=== PATIENT | female | born 1965 | race Caucasian/White ===

== ENCOUNTER 2019-06-29 04:49 | Inpatient (IN) | payer SELFPAY ==
[~2019-06-29] VITALS: Ht 170.2 cm; Wt 76.0 kg
[2019-06-29] MEDS ORDERED: IV NORMAL SALINE 1000ML BAG 1,000 ML IV SCH (05:45)
--- NOTE | 2019-06-29 05:58 | PHYS DOC ---
Adult General Chief Complaint Chief Complaint: BLOODY STOOL HPI HPI Patient is a 53 year old female with history of hypertension and tachycardia who presents with complaining of rectal bleeding. Patient states she had more than 20 episodes of rectal bleeding since 2100 last night as bright red blood t hat changing to blood clot with the last few episodes of rectal bleeding. Patient states she is passing 150 cc blood with each episode of rectal bleeding and denies abdominal pain, dizziness, palpitation, chest pain, shortness of breath, rectal pain, nausea and vomiting, history of GI bleeding. Patient states she takes baby aspirin daily and denies using [id number] pain me dication recently. 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 Patient denies fever and chills, URI symptoms, myalgia. Review of Systems Review of Systems Constitutional: Denies fever or chills [] Eyes: Denies change in visual acuity, redness, or eye pain [] HENT: Denies nasal congestion or sore throat [] Respiratory: Denies cough or shortness of breath [] Cardiovascular: No additional information not addressed in HPI [] GI: Denies abdominal pain, nausea, vomiting,, report bloody stools[] : Denies dysuria or hematuria [] Musculoskeletal: Denies back pain or joint pain [] Integument: Denies rash or skin lesions [] Neurologic: Denies headache, focal weakness or sensory changes [] Endocrine: Denies polyuria or polydipsia [] All other systems were reviewed and found to be within normal limits, except as documented in this note. Current Medications Current Medications Current Medications Medications (Trade) Dose Ordered Sig/Román Start Time Stop Time Status Last Admin Dose Admin Pantoprazole Sodium (PROTONIX VIAL for IV PUSH) 40 mg 1X ONCE 06/29/19 06:00 06/29/19 06:01 DC Sodium Chloride 1,000 ml @ 1,000 mls/hr Q1H 06/29/19 05:45 06/29/19 06:44 Allergies Allergies Allergies Coded Allergies Type Severity Reaction Last Updated Verified acetaminophen Allergy Unknown 06/29/19 Yes oxycodone Allergy Unknown 06/29/19 Yes Physical Exam Physical Exam Constitutional: Well developed, well nourished, mild distress, non-toxic appearance, no pallor. [] HENT: Normocephalic, atraumatic, moist oral mucosa. Eyes: PERRLA, EOMI, conjunctiva normal, no discharge. [] Neck: Normal range of motion, no tenderness, supple, no stridor. [] Cardiovascular:Heart rate regular rhythm, no murmur [] Lungs & Thorax: Bilateral breath sounds clear to auscultation [] Abdomen: Bowel sounds normal, soft, no tenderness, no masses, no pulsatile masses. Rectal exam in present of design intern showed gross maroon color blood inside of rectum without palpable mass or external hemorrhoid. Skin: Warm, dry, no erythema, no rash. [] Back: No tenderness, no CVA tenderness. [] Extremities: No tenderness, no cyanosis, no clubbing, ROM intact, no edema. [] Neurologic: Alert and oriented X 3, no focal deficits noted. [] Psychologic: Affect anxious, judgement normal, mood normal. [] Current Patient Data Vital Signs Vital Signs Date Time Temp Pulse Resp B/P (MAP) Pulse Ox O2 Delivery O2 Flow Rate FiO2 06/29/19 05:09 97.7 78 20 142/81 (101) 100 Room Air 97.7 EKG EKG [] Radiology/Procedures Radiology/Procedures [] Course & Med Decision Making Course & Med Decision Making Pertinent Labs and Imaging studies are pending. Evaluation of patient in ER showed 53-year-old female patient presented with complaining of more than 20 episodes of rectal bleeding since last night without other symptoms. Patient called her primary care physician Dr. Ruiz who recommended to come to emergency room for evaluation. Sign out given to at 0600 for further evaluation and final disposition. Discussed current findings and plan with patient and family, who acknowledge understanding and agreement. Dragon Disclaimer Dragon Disclaimer This electronic medical record was generated, in whole or in part, using a voice recognition dictation system. Departure Departure Impression: Primary Impression: Rectal bleeding THOMAS WEST MD Jun 29, 2019 05:58
[2019-06-29] MEDS ORDERED: PANTOPRAZOLE IV PUSH 40 MG VIAL. IVP ONE (06:00)
[2019-06-29 06:28] LABS: CALCIUM 8.5 mg/dL (8.5-10.1); CREATININE 0.6 mg/dL (0.6-1.0); GFR 104.2; POTASSIUM 3.7 mmol/L (3.5-5.1)
[2019-06-29 06:30] LABS: BASO % 1 % (0-3); EOS # 0.4 x10^3/uL (0.0-0.7); EOS % 5 % (0-3); HEMATOCRIT 34.6 % (36.0-47.0); HEMOGLOBIN 11.9 g/dL (12.0-15.5); LYMPH # 3.3 x10^3/uL (1.0-4.8); LYMPH % 40 % (24-48); MEAN CORPUSCULAR HEMOGLOBIN 34 pg (25-35); MEAN CORPUSCULAR HGB CONC 34 g/dL (31-37); MEAN CORPUSCULAR VOLUME 99 fL (79-100); MONO # 0.9 x10^3/uL (0.0-1.1); MONO % 11 % (0-9); NEUT # 3.6 x10^3/uL (1.8-7.7); NEUT % 44 % (31-73); PLATELET COUNT 223 x10^3/uL (140-400); RED BLOOD COUNT 3.48 x10^6/uL (3.50-5.40); RED CELL DISTRIBUTION WIDTH 13.6 % (11.5-14.5); WHITE BLOOD COUNT 8.2 x10^3/uL (4.0-11.0)
[2019-06-29 06:34] LABS: ALBUMIN 3.5 g/dL (3.4-5.0); TOTAL BILIRUBIN 0.5 mg/dL (0.2-1.0)
--- NOTE | 2019-06-29 06:42 | RAD ---
INDICATION: Abdomen pain COMPARISON: None. TECHNIQUE: Axial CT images obtained through the abdomen and pelvis without contrast. One or more of the following individualized dose reduction techniques were utilized for this examination: 1. Automated exposure control; 2. Adjustment of the mA and/or kV according to patient size; 3. Use of iterative reconstruction technique. FINDINGS: Calcific atherosclerosis without abdominal aortic aneurysm. No intrahepatic bile duct dilation. No peripancreatic fluid collection. Spleen unremarkable. Urinary bladder is decompressed. Prominence bilateral extrarenal pelvis. Calcifications within the pelvis. Colonic diverticulosis. There is some questionable mild haziness to the fat adjacent to the sigmoid colon. No periappendiceal inflammatory changes. Degenerative changes the spine with multilevel central canal and neural foraminal stenosis with mild scoliosis. Inferior endplate compression fracture L1 vertebral body IMPRESSION: * Colonic diverticulosis with possible mild haziness the fat adjacent to the sigmoid colon. This is a mild finding but early diverticulitis could have this appearance in the correct clinical context. * Severe calcific atherosclerosis. * Degenerative changes of the spine with scoliotic curvature multilevel central canal neural foraminal stenosis as well as inferior endplate compression fracture of L1. Electronically signed by: Easton Tinsley MD (06/29/2019 6:39 AM) [id number]
[2019-06-29] MEDS ORDERED: MORPHINE SULFATE 2 MG/ML VIAL. IV PRN ×2 (07:00→07:45)
[2019-06-29] MEDS ORDERED: ONDANSETRON PF 4 MG/2 ML VIAL. IV PRN (07:00)
[2019-06-29 07:06] LABS: PROTHROMBIN TIME PATIENT 12.6 SEC (11.7-14.0)
[2019-06-29 08:00] VITALS: BP 97/52
[2019-06-29 11:00] VITALS: BP 107/58
--- NOTE | 2019-06-29 12:00 | PDOC ---
Provider Note Provider Note [id number] ANA GUSTAFSON MD Jun 29, 2019 12:00
--- NOTE | 2019-06-29 12:25 | HP ---
ADMIT DATE: 06/29/2019 CHIEF COMPLAINT: Bright red rectal bleeding. HISTORY OF PRESENT ILLNESS: A 53-year-old white female, patient of Dr. Villalba who takes carvedilol for hypertension, omeprazole and low-dose aspirin as her only medications. She had painless multiple episodes of bright red rectal bleeding over the last several hours prior to coming to the ER. Rectal exam was unremarkable except for blood and she was admitted with hemoglobin stable and vital signs stable so far. There has been no heartburn, abdominal pain, nausea, fever, melena, or any other symptoms prior to the onset of the hematochezia. PAST MEDICAL HISTORY: No serious medical problems. History of hypertension, but no heart disease. ALLERGIES: OXYCODONE AND TYLENOL LISTED. MEDICATIONS: She takes aspirin 81 mg every day. SOCIAL HISTORY: Half pack a day smoker, marital status unknown. 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 Nondrinker. FAMILY HISTORY: Unremarkable. REVIEW OF SYSTEMS: No other complaints. OBJECTIVE: ENT: Unremarkable. No pallor. NECK: No masses, nodes or bruits. LUNGS: Clear. CARDIOVASCULAR: Regular rate. No murmur is heard. BREASTS: Not examined. ABDOMEN: Soft, benign and nontender. EXTREMITIES: Good pedal and radial pulses. No joint or skin lesions or tachycardia. NEUROLOGIC: Physiologic. GENITOURINARY AND RECTAL: Deferred. ASSESSMENT: Recurrent episodes of hematochezia. Most likely cause would be diverticular bleed as this is painless, spontaneous and probably exacerbated by aspirin. She has never had a colonoscopy. PLAN: IV fluids. Hemoglobin monitoring, discontinue aspirin. GI consultation pending if her bleeding stops, she would need a colonoscopy in the near future or will need to be that more urgently if it persists. ANA GUSTAFSON MD DR: [email or web address]/[email or web address] JOB#: [id number] / [id number]
[2019-06-29] MEDS: PANTOPRAZOLE 40 MG TABLET.DR. PO SCH (12:30)
--- NOTE | 2019-06-29 12:54 | PDOC ---
G I PROGRESS NOTE Reason for Follow-up Rectal bleed Subjective Hungry Physical Exam Lungs clear CV S1 S2 ABd +BS, soft, nontender Review of Relevant I have reviewed the following items shantell (where applicable) has been applied. Labs Laboratory Tests Test 06/29/19 06:00 White Blood Count 8.2 x10^3/uL (4.0-11.0) Red Blood Count 3.48 x10^6/uL (3.50-5.40) Hemoglobin 11.9 g/dL (12.0-15.5) Hematocrit 34.6 % (36.0-47.0) Mean Corpuscular Volume 99 fL (79-100) Mean Corpuscular Hemoglobin 34 pg (25-35) Mean Corpuscular Hemoglobin Concent 34 g/dL (31-37) Red Cell Distribution Width 13.6 % (11.5-14.5) Platelet Count 223 x10^3/uL (140-400) Neutrophils (%) (Auto) 44 % (31-73) Lymphocytes (%) (Auto) 40 % (24-48) Monocytes (%) (Auto) 11 % (0-9) Eosinophils (%) (Auto) 5 % (0-3) Basophils (%) (Auto) 1 % (0-3) Neutrophils # (Auto) 3.6 x10^3/uL (1.8-7.7) Lymphocytes # (Auto) 3.3 x10^3/uL (1.0-4.8) Monocytes # (Auto) 0.9 x10^3/uL (0.0-1.1) Eosinophils # (Auto) 0.4 x10^3/uL (0.0-0.7) Basophils # (Auto) 0.0 x10^3/uL (0.0-0.2) Prothrombin Time 12.6 SEC (11.7-14.0) Prothromb Time International Ratio 1.0 (0.8-1.1) Activated Partial Thromboplast Time 30 SEC (24-38) Sodium Level 130 mmol/L (136-145) Potassium Level 3.7 mmol/L (3.5-5.1) Chloride Level 96 mmol/L (98-107) Carbon Dioxide Level 24 mmol/L (21-32) Anion Gap 10 (6-14) Blood Urea Nitrogen 12 mg/dL (7-20) Creatinine 0.6 mg/dL (0.6-1.0) Estimated GFR (Cockcroft-Gault) 104.2 BUN/Creatinine Ratio 20 (6-20) Glucose Level 83 mg/dL (70-99) Calcium Level 8.5 mg/dL (8.5-10.1) Total Bilirubin 0.5 mg/dL (0.2-1.0) Aspartate Amino Transf (AST/SGOT) 23 U/L (15-37) Alanine Aminotransferase (ALT/SGPT) 28 U/L (14-59) Alkaline Phosphatase 94 U/L (46-116) Total Protein 7.0 g/dL (6.4-8.2) Albumin 3.5 g/dL (3.4-5.0) Albumin/Globulin Ratio 1.0 (1.0-1.7) Lipase 781 U/L (73-393) Laboratory Tests Test 06/29/19 06:00 White Blood Count 8.2 x10^3/uL (4.0-11.0) Red Blood Count 3.48 x10^6/uL (3.50-5.40) Hemoglobin 11.9 g/dL (12.0-15.5) Hematocrit 34.6 % (36.0-47.0) Mean Corpuscular Volume 99 fL (79-100) Mean Corpuscular Hemoglobin 34 pg (25-35) Mean Corpuscular Hemoglobin Concent 34 g/dL (31-37) Red Cell Distribution Width 13.6 % (11.5-14.5) Platelet Count 223 x10^3/uL (140-400) Neutrophils (%) (Auto) 44 % (31-73) Lymphocytes (%) (Auto) 40 % (24-48) Monocytes (%) (Auto) 11 % (0-9) Eosinophils (%) (Auto) 5 % (0-3) Basophils (%) (Auto) 1 % (0-3) Neutrophils # (Auto) 3.6 x10^3/uL (1.8-7.7) Lymphocytes # (Auto) 3.3 x10^3/uL (1.0-4.8) Monocytes # (Auto) 0.9 x10^3/uL (0.0-1.1) Eosinophils # (Auto) 0.4 x10^3/uL (0.0-0.7) Basophils # (Auto) 0.0 x10^3/uL (0.0-0.2) Prothrombin Time 12.6 SEC (11.7-14.0) Prothromb Time International Ratio 1.0 (0.8-1.1) Activated Partial Thromboplast Time 30 SEC (24-38) Sodium Level 130 mmol/L (136-145) Potassium Level 3.7 mmol/L (3.5-5.1) Chloride Level 96 mmol/L (98-107) Carbon Dioxide Level 24 mmol/L (21-32) Anion Gap 10 (6-14) Blood Urea Nitrogen 12 mg/dL (7-20) Creatinine 0.6 mg/dL (0.6-1.0) Estimated GFR (Cockcroft-Gault) 104.2 BUN/Creatinine Ratio 20 (6-20) Glucose Level 83 mg/dL (70-99) Calcium Level 8.5 mg/dL (8.5-10.1) Total Bilirubin 0.5 mg/dL (0.2-1.0) Aspartate Amino Transf (AST/SGOT) 23 U/L (15-37) Alanine Aminotransferase (ALT/SGPT) 28 U/L (14-59) Alkaline Phosphatase 94 U/L (46-116) Total Protein 7.0 g/dL (6.4-8.2) Albumin 3.5 g/dL (3.4-5.0) Albumin/Globulin Ratio 1.0 (1.0-1.7) Lipase 781 U/L (73-393) Medications Current Medications Sodium Chloride 1,000 ml @ 1,000 mls/hr Q1H IV Last administered on 06/29/19at 06:09; Start 06/29/19 at 05:45; Stop 06/29/19 at 06:44; Status DC Pantoprazole Sodium (PROTONIX VIAL for IV PUSH) 40 mg 1X ONCE IVP Last administered on 06/29/19at 06:09; Start 06/29/19 at 06:00; Stop 06/29/19 at 11:57; Status DC Levofloxacin/ Dextrose 100 ml @ 100 mls/hr 1X ONCE IV ; Start 06/29/19 at 07:00; Stop 06/29/19 at 11:57; Status DC Metronidazole 100 ml @ 100 mls/hr 1X ONCE IV ; Start 06/29/19 at 07:00; Stop 06/29/19 at 11:57; Status DC Ondansetron HCl (Zofran) 4 mg PRN Q8HRS PRN IV NAUSEA/VOMITING; Start 06/29/19 at 07:00; Stop 06/30/19 at 06:59 Morphine Sulfate (Morphine Sulfate) 2 mg PRN Q2HR PRN IV PAIN; Start 06/29/19 at 07:00; Stop 06/29/19 at 07:33; Status DC Morphine Sulfate (Morphine Sulfate) 2 mg PRN Q2HR PRN IV PAIN; Start 06/29/19 at 07:45; Stop 06/29/19 at 11:57; Status DC Dextrose/Sodium Chloride 1,000 ml @ 75 mls/hr [id number] IV ; Start 06/29/19 at 12:00 Pantoprazole Sodium (Protonix) 40 mg DAILYAC PO ; Start 06/29/19 at 12:30 Vitals/I & O Vital Sign - Last 24 Hours 06/29/19 06/29/19 06/29/19 06/29/19 05:09 05:53 06:15 06:45 Temp 97.7 97.7 Pulse 78 82 80 72 Resp 20 20 20 20 B/P (MAP) 142/81 (101) 132/73 (92) 131/83 (99) 118/51 (73) Pulse Ox 100 99 98 99 O2 Delivery Room Air Room Air Room Air Room Air 06/29/19 06/29/19 08:00 11:00 Temp 98.0 98.0 Pulse 74 85 Resp 16 16 B/P (MAP) 97/52 (67) 107/58 (74) Pulse Ox 98 95 O2 Delivery Room Air Problem List Problems Medical Problems: (1) Rectal bleeding Status: Acute Assessment Hematochezia- most likely diverticular bleed, Differential includes; ischemic coliitis, IBD new onset, colon cancer, and/or hemorrhoids. Plan serial cbcs advance diet o clear liquids colonoscopy to further assess most likely as o/p JAMAL JOHNSON MD Jun 29, 2019 12:53
[2019-06-29] MEDS: IV DEXTROSE 5% - 0.9 % NACL 1,000 ML IV SCH (14:04)
[2019-06-29 15:00] VITALS: BP 115/52
[2019-06-29 19:00] VITALS: BP 148/78
[2019-06-29 20:02] LABS: HEMOGLOBIN 9.9 g/dL (12.0-15.5); RED BLOOD COUNT 2.94 x10^6/uL (3.50-5.40); RED CELL DISTRIBUTION WIDTH 13.4 % (11.5-14.5); WHITE BLOOD COUNT 5.3 x10^3/uL (4.0-11.0)
--- NOTE | 2019-06-29 20:55 | NUR ---
Change of care note: Report given to Sincere Rn, Pt in bed resting comfortable poc explained call light in reach
[2019-06-29 22:20] VITALS: BP 159/74
[2019-06-30] MEDS: traMADol 50 MG TABLET PO PRN ×4 (01:11→22:46)
[2019-06-30] MEDS: IV DEXTROSE 5% - 0.9 % NACL 1,000 ML IV SCH (01:13)
[2019-06-30 02:35] VITALS: BP 180/84
[2019-06-30 04:44] LABS: HEMATOCRIT 27.8 % (36.0-47.0); HEMOGLOBIN 9.6 g/dL (12.0-15.5); RED BLOOD COUNT 2.8 x10^6/uL (3.50-5.40); RED CELL DISTRIBUTION WIDTH 13.6 % (11.5-14.5); WHITE BLOOD COUNT 5.5 x10^3/uL (4.0-11.0)
[2019-06-30 07:00] VITALS: BP 163/81
[2019-06-30] MEDS: PANTOPRAZOLE 40 MG TABLET.DR. PO SCH (08:07)
[2019-06-30 11:00] VITALS: BP 175/86
--- NOTE | 2019-06-30 11:11 | PDOC ---
Provider Note Provider Note some headache, last bleed 8 hrs ago , abd soft , no other sxs- hb same 9.6- dc iv fluid, add coreg, tanja hb, observe another day ANA GUSTAFSON MD Jun 30, 2019 11:11
[2019-06-30] MEDS: CARVEDILOL 6.25 MG TABLET. PO SCH ×2 (12:27→16:52)
[2019-06-30 15:00] VITALS: BP 139/68
[2019-06-30 19:57] VITALS: BP 119/59
[2019-06-30] MEDS: TEMAZEPAM 15 MG CAPSULE PO PRN (22:46)
[2019-06-30 22:49] VITALS: BP 138/63
[2019-07-01 03:00] VITALS: BP 165/93
[2019-07-01 07:00] VITALS: BP 141/66
[2019-07-01 07:08] LABS: HEMATOCRIT 26.6 % (36.0-47.0); HEMOGLOBIN 8.9 g/dL (12.0-15.5); RED BLOOD COUNT 2.65 x10^6/uL (3.50-5.40); RED CELL DISTRIBUTION WIDTH 13.7 % (11.5-14.5); WHITE BLOOD COUNT 5.7 x10^3/uL (4.0-11.0)
[2019-07-01] MEDS: PANTOPRAZOLE 40 MG TABLET.DR. PO SCH (08:16)
[2019-07-01] MEDS: CARVEDILOL 6.25 MG TABLET. PO SCH ×2 (08:16→17:10)
--- NOTE | 2019-07-01 09:39 | PDOC ---
Subjective: Subjective: Says her doctor said she should stay another day. No bleeding since yesterday afternoon. Denies abd pain. Objective: Objective: D/w nurse - on regular diet, last stooled/bled yesterday at 4:00 p.m. Vital Signs: Vital Signs Date Time Temp Pulse Resp B/P (MAP) Pulse Ox O2 Delivery O2 Flow Rate FiO2 07/01/19 08:16 64 141/66 07/01/19 07:00 98.1 18 98 Room Air 98.1 Labs: Laboratory Tests Test 06/30/19 14:55 07/01/19 05:40 Glucose (Fingerstick) 102 mg/dL White Blood Count 5.7 x10^3/uL Red Blood Count 2.65 x10^6/uL Hemoglobin 8.9 g/dL Hematocrit 26.6 % Mean Corpuscular Volume 100 fL Mean Corpuscular Hemoglobin 33 pg Mean Corpuscular Hemoglobin Concent 33 g/dL Red Cell Distribution Width 13.7 % Platelet Count 177 x10^3/uL PE: GEN: NAD, was asleep LUNGS: CTAB HEART: RRR ABD: S/ND/NT NEURO/PSYCH: A & O 3, flat A/P: Suspected diverticular bleed Anemia -- Bleeding slowing. Says plans to stay another night. Plan for outpt colonoscopy. Will review w/ Dr. Walsh when okay to resume ASA. Hemodynamically unstable?: No Is patient in severe pain?: No Is NPO status required?: No KUNAL GOODMAN Jul 01, 2019 09:39
[2019-07-01 10:46] VITALS: BP 123/58
[2019-07-01] MEDS: traMADol 50 MG TABLET PO PRN ×2 (10:52→22:06)
--- NOTE | 2019-07-01 13:50 | NUR ---
SW following. Discussed with RN, pt from home, gets around fine, regular diet, room air. RN advised no SW needs and anticipates pt should discharge home with self care possibly tomorrow (07/02/2019). SW will continue to follow.
[2019-07-01 14:56] VITALS: BP 141/63
[2019-07-01 18:37] VITALS: BP 133/60
[2019-07-01] MEDS: TEMAZEPAM 15 MG CAPSULE PO PRN (22:06)
[2019-07-01 22:40] VITALS: BP 162/79
[2019-07-02 03:20] VITALS: BP 160/85
[2019-07-02] MEDS: PANTOPRAZOLE 40 MG TABLET.DR. PO SCH (05:12)
[2019-07-02] MEDS: traMADol 50 MG TABLET PO PRN (05:12)
[2019-07-02 07:10] LABS: HEMOGLOBIN 8.9 g/dL (12.0-15.5); RED BLOOD COUNT 2.62 x10^6/uL (3.50-5.40); RED CELL DISTRIBUTION WIDTH 13.4 % (11.5-14.5); WHITE BLOOD COUNT 5.6 x10^3/uL (4.0-11.0)
[2019-07-02 07:21] VITALS: BP 175/78
--- NOTE | 2019-07-02 07:48 | PDOC ---
GENERAL General: late entry from 06/30. vss and afebrile. awake and alert. last bloody stool yesterday pm. feels little weak but ok. hb decreased to 8.6 this am and will continue to monitor till stabilizes. exam normal. VITAL SIGNS/I&O Vital Signs/I&O: Vital Signs Date Time Temp Pulse Resp B/P (MAP) Pulse Ox O2 Delivery O2 Flow Rate FiO2 07/02/19 07:21 98.0 112 18 175/78 (110) 97 Room Air 98.0 I & O 07/01/19 07/01/19 07/02/19 15:00 23:00 07:00 Intake Total 480 ml 480 ml 840 ml Balance 480 ml 480 ml 840 ml ALLERGIES Allergies: Allergies Coded Allergies Type Severity Reaction Last Updated Verified acetaminophen Adverse Reaction Intermediate NAUSEA/VOMITING 06/29/19 Yes oxycodone Adverse Reaction Intermediate NAUSEA/VOMITING 06/29/19 Yes LAB Lab: Laboratory Tests Test 07/02/19 03:50 White Blood Count 5.6 x10^3/uL (4.0-11.0) Red Blood Count 2.62 x10^6/uL (3.50-5.40) L Hemoglobin 8.9 g/dL (12.0-15.5) L Hematocrit 26.0 % (36.0-47.0) L Mean Corpuscular Volume 100 fL (79-100) Mean Corpuscular Hemoglobin 34 pg (25-35) Mean Corpuscular Hemoglobin Concent 34 g/dL (31-37) Red Cell Distribution Width 13.4 % (11.5-14.5) Platelet Count 178 x10^3/uL (140-400) Laboratory Tests 07/02/19 03:50 Hemodynamically unstable?: No Is patient in severe pain?: No Is NPO status required?: No JOLLY FOREMAN MD Jul 02, 2019 07:47
[2019-07-02] MEDS ORDERED: TRAM50TA PO (07:53)
[2019-07-02] MEDS ORDERED: OMEP20TA63 PO (07:53)
[2019-07-02] MEDS ORDERED: CARV6.2511 PO (07:53)
[2019-07-02] MEDS: CARVEDILOL 6.25 MG TABLET. PO SCH (08:17)
--- NOTE | 2019-07-02 09:08 | PDOC ---
Subjective: Subjective: No complaints, no bleeding. Objective: Objective: D/w nurse - discharge today, "dark stool" yesterday per pt. Vital Signs: Vital Signs Date Time Temp Pulse Resp B/P (MAP) Pulse Ox O2 Delivery O2 Flow Rate FiO2 07/02/19 08:17 112 175/78 07/02/19 07:21 98.0 18 97 Room Air 98.0 Labs: Laboratory Tests Test 07/02/19 03:50 White Blood Count 5.6 x10^3/uL Red Blood Count 2.62 x10^6/uL Hemoglobin 8.9 g/dL Hematocrit 26.0 % Mean Corpuscular Volume 100 fL Mean Corpuscular Hemoglobin 34 pg Mean Corpuscular Hemoglobin Concent 34 g/dL Red Cell Distribution Width 13.4 % Platelet Count 178 x10^3/uL PE: GEN: NAD, resting LUNGS: CTAB HEART: RRR ABD: S/ND/NT NEURO/PSYCH: A & O 3 A/P: Suspected diverticular bleed - resolved Anemia - stable -- DC per primary, outpt 'scopes. Hemodynamically unstable?: No Is patient in severe pain?: No Is NPO status required?: No KUNAL GOODMAN Jul 02, 2019 09:08
--- NOTE | 2019-07-02 09:56 | DS ---
DATE OF DISCHARGE: PRIMARY DIAGNOSIS: Lower gastrointestinal bleed, likely diverticular. ADDITIONAL DIAGNOSES: Anemia, hypertension. CHIEF COMPLAINT AND HISTORY OF PRESENT ILLNESS: This 53-year-old white female presented to the Emergency Room after multiple bright red stools. Through the Emergency Room, hemoglobin initially of 11.9 and normal vital signs. SUMMARY OF STAY: The patient was admitted, continued to have bloody stools, dropped hemoglobin down gradually to 8.9 by the , it was stable on the at 8.9 with no further bloody stools 24 hours prior to admission. GI felt comfortable with discharge. Outpatient colonoscopy. This was explained to her and we will arrange this as an outpatient. CT scanning of the abdomen and pelvis showed colonic diverticulosis with possible mild haziness in the fat adjacent to the sigmoid colon as well as degenerative changes of the spine. She was stable, felt ready for discharge with close outpatient followup and this was accomplished. DISPOSITION: The patient is discharged to home. Regular diet. Activity as tolerated. Phone call on Monday for a Tele health visit. Discharge meds are listed on the med rec and have been addressed. JOLLY FOREMAN MD DR: ROSENDO/wellington JOB#: [id number] / [id number]
[2019-07-02 10:35] VITALS: BP 175/81
--- NOTE | 2019-07-02 10:54 | NUR ---
Discharge Note: BISI BRITO Discharge instructions and discharge home medications reviewed with Patient and a copy given. All questions have been answered and understanding verbalized. The following instructions and handouts were given: Diverticulosis, Colonoscopy Discontinued lines and drains: IV catheter removed intact. Patient discharged to Home with self care via wheelchair.
== END 2019-07-02 11:00 | disposition home or self-care (01) | DRG 379 ==
LOC: ER 04:49 → 2 NORTH 07:41
PROVIDERS: ADMIT Family Medicine; ATTEND Family Medicine
DX: K57.31 Diverticulosis of large intestine without perforation or abscess with bleeding (principal); D64.9 Anemia, unspecified; F17.210 Nicotine dependence, cigarettes, uncomplicated; I10 Essential (primary) hypertension; Z20.828 Contact with and (suspected) exposure to other viral communicable diseases; Z79.82 Long term (current) use of aspirin; Z79.899 Other long term (current) drug therapy; Z88.8 Allergy status to other drugs, medicaments and biological substances
CPT/HCPCS: 36415; 74176; 80053; 82962; 83690; 85025; 85027; 85610; 85730; 86850; 86900; 86901; 96361; 96374; 99285; C9113; J7030; J7042; G0378